=== PATIENT | male | born 1945 | race Caucasian/White ===

== ENCOUNTER 2018-03-04 12:45 | Observation (INO) | payer OTHER, MEDICARE ==
[2018-03-04] MEDS ORDERED: ALBUTEROL 2.5 MG/3 ML NEB SOL IH PRN (13:35)
[2018-03-04] MEDS: IPRATROPIUM BROM 0.5MG/2.5ML IH SCH ×2 (14:00→20:00)
[2018-03-04] MEDS ORDERED: ONDANSETRON 4 MG/2 ML VIAL IV PRN (14:00)
[2018-03-04] MEDS ORDERED: ACETAMINOPHEN 325 MG TABLET PO PRN (14:00)
[2018-03-04] MEDS ORDERED: DIPHENHYDRAMINE 25 MG TAB/CAP PO PRN (14:00)
[2018-03-04] MEDS ORDERED: NACHLORIDE 0.45% 1,000 ML IV SCH (14:00)
[2018-03-04] MEDS ORDERED: POLYETHYL GLY 3350 17 GM/DOSE PO PRN (14:00)
[2018-03-04] MEDS: LEVALBUTEROL 1.25 MG/3 ML NEB IH SCH ×2 (14:00→20:00)
[2018-03-04] MEDS ORDERED: LOPERAMIDE HCL 2 MG CAPSULE PO PRN (14:00)
[2018-03-04] MEDS ORDERED: ONDANSETRON 4 MG (ODT) TAB PO PRN (14:00)
[2018-03-04] MEDS ORDERED: NA CHLORIDE 0.9% 250 ML IV SCH (14:00)
[2018-03-04 15:28] LABS: Albumin 2.9 g/dL (3.2-5.5); Bilirubin Direct 0.2 mg/dL (0-0.2); Bilirubin Total 0.4 mg/dL (0.3-1.2); Potassium 4.4 mEq/L (3.6-5.0); Protein, Total 6.2 g/dL (6.0-8.3)
[2018-03-04 15:37] LABS: Absolute Lymphocytes (CBC) 0.6 K/uL (0.7-4.9); Absolute Monocytes 0.5 K/uL (0.1-1.3); Absolute Neutrophil 6.5 K/uL (1.8-8.0); Basophils % 0.1 % (0-1.3); Hematocrit 23.2 % (39.6-49.0); Lymphocytes % 7.8 % (15.3-44.8); MCH 31.5 pg (27.0-35.0); MCV 94.2 fL (80-100); MPV 7.6 fL (7.6-11.3); Monocytes % 6.2 % (3.3-12.3); RBC Red Blood Cell Count 2.46 M/uL (4.33-5.43)
[2018-03-04 16:46] LABS: Protime INR 1.03
[2018-03-04] MEDS ORDERED: NA CHLORIDE 0.9% 250 ML ONE (17:05)
[2018-03-04 21:04] VITALS: BMI 30.3
[2018-03-04 22:20] LABS: Anisocytosis 2+; Blood Morphology Comment NOTED (NOT SEEN); Hypochromasia 2+; Platelet Estimate ADEQ; Polychromasia 1+; Urine White Blood Cell Casts OK
--- NOTE | 2018-03-04 23:01 | EKG ---
Test Date: 2018-03-04 Test Time: 14:36:01 Pararescue Craftsman: SHADI MEASUREMENT RESULTS: Intervals: Rate: 68 MA: 164 QRSD: 96 QT: 418 QTc: 444 [place]: P: 67 MA: 164 QRS: -2 T: 17 INTERPRETIVE STATEMENTS: Normal sinus rhythm with sinus arrhythmia Normal ECG Compared to ECG 09/28/2012 13:26:16 No significant changes Electronically Signed On 03-04-18 23:00:50 CDT by Eric Velazquez
[2018-03-05] MEDS: LEVALBUTEROL 1.25 MG/3 ML NEB IH SCH (01:27)
[2018-03-05] MEDS: IPRATROPIUM BROM 0.5MG/2.5ML IH SCH (01:27)
[2018-03-05 01:54] VITALS: O2SAT 97
[2018-03-05 02:22] LABS: Hematocrit 30.7 % (39.6-49.0)
[2018-03-05 02:35] VITALS: BP 131/65; TEMP 97.5
--- NOTE | 2018-04-04 13:38 | P.SSS ---
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 HE WAS TOLD BY [facility] TO COME TO MY OFFICE FOR BLOOD TRANSFUSION. HE WANTED TO GO HOME ON THE SAME DAY SO AFTER TWO UNITS OF PACKED RBCS HE WENT HOME AT NIGHT. HE HAS CHEMO GIVEN BY [facility]. Allergies No Known Allergies Allergy (Verified 03/04/18 13:44) Home Medications: Dexamethasone 4 mg PO BEDTIME 03/04/18 Methylphenidate HCl 5 mg PO BID 03/04/18 Metoclopramide HCl 5 mg PO TID 03/04/18 Ondansetron HCl 8 mg PO PRN PRN 03/04/18 Oxycodone HCl [Oxyir (Oxycodone HCl Imr)*] 5 mg PO PRN PRN 03/04/18 Pantoprazole Sodium 40 mg PO BID 03/04/18 Tamsulosin [Flomax*] 1 tab PO DAILY 03/04/18 - Past Medical/Surgical History Has patient received pneumonia vaccine in the past: No Diabetic: No -: stomach cancer -: diverticulitis that ruptured -: stomach surgery -: colonscopy bag -: knee sx - Social History Smoking Status: Never smoker Alcohol use: No CD- Drugs: No Caffeine use: Yes Place of Residence: Home Review of Systems 10-point ROS is otherwise unremarkable Physical Examination - Vital Signs Temperature: 97.5 F Blood Pressure: 131/65 Pulse: 57 Respirations: 18 Pulse Ox (%): 97 - Physical Exam General: Alert, In no apparent distress HEENT: Atraumatic, PERRLA, Mucous membr. moist/pink, EOMI, Sclerae nonicteric Neck: Supple, 2+ carotid pulse no bruit, No LAD, Without JVD or thyroid abnormality Respiratory: Clear to auscultation bilaterally, Normal air movement Cardiovascular: Regular rate/rhythm, Normal S1 S2 Gastrointestinal: Normal bowel sounds, No tenderness Musculoskeletal: No tenderness Integumentary: No rashes Neurological: Normal gait, Normal speech, Normal strength at 5/5 x4 extr, Normal tone, Normal affect Lymphatics: No axilla or inguinal lymphadenopathy - Diagnosis (Problem(s)) (1) Anemia associated with chemotherapy Status: Acute Plan: DID WELL WITH BL TR. WANTED TO GO HOME QUICK. WENT HOME AT 4 AM. (2) Stomach cancer Status: Acute Plan: MD DELGADO TO CONT THERAPY. - Disposition Disposition: ROUTINE DISCHARGE Condition: GOOD
== END 2018-03-05 03:00 | disposition home or self-care (01) ==
LOC: 2ND 12:58
PROVIDERS: ADMIT Internal Medicine; ATTEND Internal Medicine
PROC: 30233N1 Transfusion of Nonautologous Red Blood Cells into Peripheral Vein, Percutaneous Approach (ICD-10-PCS; principal; 2018-03-04)
DX: D64.9 Anemia, unspecified (principal); C16.9 Malignant neoplasm of stomach, unspecified
CPT/HCPCS: 36415 ×2; 36430; 80048; 80076; 85014; 85018; 85025; 85610; 85730; 86850; 86900; 86901; 93005; P9016 ×2

== ENCOUNTER 2019-01-07 09:34 | Inpatient (IN) | payer OTHER, MEDICARE ==
[2019-01-07] MEDS ORDERED: NA CHLORIDE 0.9% 1,000 ML ONE ×2 (10:27→12:42)
[2019-01-07 10:31] LABS: Absolute Lymphocytes (CBC) 0.6 K/uL (0.7-4.9); Absolute Monocytes 0.7 K/uL (0.1-1.3); Absolute Neutrophil 9.8 K/uL (1.8-8.0); Hematocrit 42.8 % (39.6-49.0); Lymphocytes % 5.4 % (15.3-44.8); MPV 7.2 fL (7.6-11.3); Monocytes % 6.6 % (3.3-12.3); RBC Red Blood Cell Count 4.29 M/uL (4.33-5.43)
[2019-01-07 10:52] LABS: Bilirubin Direct 0.3 mg/dL (0-0.2); Bilirubin Total 0.8 mg/dL (0.2-1.0); Potassium 4.5 mmol/L (3.5-5.1); Protein, Total 6.9 g/dL (6.4-8.2)
[2019-01-07 11:02] LABS: Blood Morphology Comment NOT SEEN (NOT SEEN); Platelet Estimate ADEQ
--- NOTE | 2019-01-07 11:15 | EKG ---
Test Date: 2019-01-07 Test Time: 09:43:12 Ticket Collector Or Usher: SHADI MEASUREMENT RESULTS: Intervals: Rate: 85 WA: 148 QRSD: 90 QT: 390 QTc: 464 [place]: P: 55 WA: 148 QRS: -15 T: 26 INTERPRETIVE STATEMENTS: Normal sinus rhythm Normal ECG Compared to ECG 03/04/2018 14:36:01 Sinus arrhythmia no longer present Electronically Signed On 01-07-19 11:10:51 CDT by Eric Velazquez
--- NOTE | 2019-01-07 11:40 | RAD REPORT ---
EXAM DESCRIPTION: CT - Stone Protocol - 01/07/2019 11:28 am CLINICAL HISTORY: Flank pain. ABD PAIN COMPARISON: CT ABD PELVIS W CONTRAST dated 09/28/2012 TECHNIQUE: Axial images were obtained without oral or IV contrast. Lack of contrast limits solid org an and vascular assessment. The [id number] spans the entirety of the system partially obscuring uppermost abdomen and lung bases. Coronal reformatted images were obtained and reviewed. All CT scans are performed using dose optimization technique as appropriate and may include automated exposure control or mA/KV adjustment according to patient size. FINDINGS: A small left pleural effusion is present. Cholecystectomy. Multiple calcifications are seen in the liver parenchyma compatible with granulomata . No aggressive liver lesion or biliary dilatation full assessment of the liver is limited by noncont rast technique.The spleen is unremarkable. The pancreas and adrenal glands are normal. No pathologic lymphadenopathy in the abdomen or pelvis. No urinary tract stones or obstructive uropathy. Multiple dilated small bowel loops are present in the abdomen likely indicating a distal mechanical s mall-bowel obstruction. Significant stool is retained in the colon. Normal appendix noted.Mild ascite s is present. No pneumoperitoneum. Prominent degenerative changes at the lumbosacral junction. IMPRESSION: Moderate mechanical small-bowel obstruction is present, likely involving the distal smal l bowel loops. Mild ascites. Moderate fecal retention in the colon.
--- NOTE | 2019-01-07 11:54 | RAD REPORT ---
EXAM DESCRIPTION: RAD - Chest Single View - 01/07/2019 11:42 am CLINICAL HISTORY: MALAISE Chest pain. COMPARISON: CHEST SINGLE VIEW dated 03/06/2008; CHEST PA AND LAT 2 VIEW dated 06/23/2003; Stone Protoc ol dated 01/07/2019 FINDINGS: Portable technique limits examination quality. Small left pleural effusion is noted. The lungs are grossly clear. The heart is normal in size. Right port catheter has tip in the SVC.
[2019-01-07] MEDS ORDERED: FENTANYL CITR 100 MCG/2 ML ONE (16:26)
--- NOTE | 2019-01-07 16:31 | EDPHYS ---
Physician Documentation [facility] Name: Alex Arana Age: 73 yrs Sex: Male : 1945 Arrival Date: 01/07/2019 Time: 09:41 Bed 6 Private MD: ED Physician Myke Johnston HPI: 01/07 16:05 This 73 yrs old Male presents to ER via EMS with complaints of FAILURE TO gs THRIVE, Epigastric Pain. 16:05 The patient presents with abdominal pain in the epigastric area. Onset: The gs symptoms/episode began/occurred yesterday. The symptoms do not radiate. Associated signs and symptoms: Pertinent positives: vomiting. The symptoms are described as achy, crampy. Modifying factors: The symptoms are alleviated by nothing, the symptoms are aggravated by nothing. Severity of pain: At its worst the pain was moderate in the emergency department the pain has improved mildly. The patient has experienced similar episodes in the past, a few times. The patient has been recently seen by a physician: yesterday. Historical: - Allergies: 09:47 No Known Allergies; bp - Home Meds: 09:47 finasteride 5 mg oral tab 1 tab once daily [Active]; tramadol 50 mg Oral tab 1 tab bp every 6 hours [Active]; metoclopramide HCl 10 mg Oral tab 1 tab before meals [Active]; zinc sulfate 220 mg Oral tab 220 mg daily [Active]; pantoprazole 40 mg oral TbEC 1 tab once daily [Active]; prochlorperazine maleate 10 mg Oral tab 1 tab every 8 hours [Active]; - PMHx: 09:47 Cancer; ESOPHAGEAL; bp - Immunization history:: Adult Immunizations. - Social history:: Smoking status: Patient/guardian denies using tobacco. - Ebola Screening: : Patient negative for fever greater than or equal to 101.5 degrees Fahrenheit, and additional compatible Ebola Virus Disease symptoms Patient denies exposure to infectious person Patient denies travel to an Ebola-affected area in the 21 days before illness onset No symptoms or risks identified at this time. ROS: 16:05 All other systems are negative. gs Exam: 16:07 Head/Face: Normocephalic, atraumatic. Eyes: Pupils equal round and reactive to light, gs extra-ocular motions intact. Lids and lashes normal. Conjunctiva and sclera are non-icteric and not injected. Cornea within normal limits. Periorbital areas with no swelling, redness, or edema. ENT: Nares patent. No nasal discharge, no septal abnormalities noted. Tympanic membranes are normal and external auditory canals are clear. Oropharynx with no redness, swelling, or masses, exudates, or evidence of obstruction, uvula midline. Mucous membranes moist. Neck: Trachea midline, no thyromegaly or masses palpated, and no cervical lymphadenopathy. Supple, full range of motion without nuchal rigidity, or vertebral point tenderness. No Meningismus. Chest/axilla: Normal chest wall appearance and motion. Nontender with no deformity. No lesions are appreciated. Cardiovascular: Regular rate and rhythm with a normal S1 and S2. No gallops, murmurs, or rubs. Normal PMI, no JVD. No pulse deficits. Respiratory: Lungs have equal breath sounds bilaterally, clear to auscultation and percussion. No rales, rhonchi or wheezes noted. No increased work of breathing, no retractions or nasal flaring. Back: No spinal tenderness. No costovertebral tenderness. Full range of motion. Skin: Warm, dry with normal turgor. Normal color with no rashes, no lesions, and no evidence of cellulitis. MS/ Extremity: Pulses equal, no cyanosis. Neurovascular intact. Full, normal range of motion. Neuro: Awake and alert, GCS 15, oriented to person, place, time, and situation. Cranial nerves II-XII grossly intact. Motor strength 5/5 in all extremities. Sensory grossly intact. Cerebellar exam normal. Normal gait. 16:07 Constitutional: The patient appears alert, awake. 16:07 Abdomen/GI: Palpation: moderate abdominal tenderness, in all quadrants, rebound tenderness, is not appreciated. Vital Signs: 09:47 BP 123 / 82; Pulse 90; Resp 16; Temp 97.4; Pulse Ox 96% ; Weight 74.84 kg; Height 5 ft. bp 11 in. (180.34 cm); 11:39 BP 111 / 92; Pulse 84; Resp 16; Pulse Ox 98% ; bp 12:17 BP 135 / 93; Pulse 80; Resp 14; Pulse Ox 99% ; bp 13:58 BP 140 / 100; Pulse 79; Resp 16; Pulse Ox 97% ; bp 15:22 BP 140 / 106; Pulse 79; Resp 14; Pulse Ox 98% on R/A; bp 16:43 BP 148 / 100; Pulse 79; Resp 14; Pulse Ox 96% ; bp 17:55 BP 108 / 68; Pulse 79; Resp 16; Pulse Ox 95% ; bp 09:47 Body Mass Index 23.01 (74.84 kg, 180.34 cm) bp MDM: 10:04 Patient medically screened. 16:11 Differential diagnosis: bowel obstruction, diverticulitis, non-specific abd pain. Data gs reviewed: vital signs, nurses notes. Counseling: I had a detailed discussion with the patient and/or guardian regarding: the historical points, exam findings, and any diagnostic results supporting the discharge/admit diagnosis, lab results, radiology results, the need for further work-up and treatment in the hospital. Response to treatment: the patient's symptoms have mildly improved after treatment. 16:30 ED course: PT WANTS TO HOLD OFF ON NG TUBE. 01/07 10:06 Order name: Basic Metabolic Panel; Complete Time: 11:15 01/07 10:06 Order name: CBC with Diff; Complete Time: 11:15 01/07 10:06 Order name: Hepatic Function; Complete Time: 11:15 01/07 10:06 Order name: Lipase; Complete Time: 11:15 01/07 10:34 Order name: Manual Differential; Complete Time: 11:15 EDMI 01/07 16:40 Order name: Basic Metabolic Panel EDMI 01/07 11:16 Order name: XRAY CXR (1 view); Complete Time: 11:57 01/07 16:40 Order name: Basic Metabolic Panel EDMI 01/07 16:40 Order name: CBC with Automated Diff EDMS 01/07 16:40 Order name: CBC with Automated Diff EDMS 01/07 16:40 Order name: Lipase EDMS 01/07 16:40 Order name: Lipase EDMS 01/07 16:40 Order name: Liver (Hepatic) Function EDMS 01/07 16:40 Order name: Liver (Hepatic) Function EDMI 01/07 10:06 Order name: IV Saline Lock; Complete Time: 10:09 01/07 10:06 Order name: Labs collected and sent; Complete Time: 10:52 01/07 10:06 Order name: EKG; Complete Time: 10:07 01/07 10:06 Order name: EKG - Nurse/Tech; Complete Time: 10:09 01/07 11:16 Order name: CT Stone Protocol; Complete Time: 11:57 01/07 16:40 Order name: NPO EDMS Administered Medications: 10:15 Drug: NS 0.9% 1000 ml Route: IV; Rate: 1 bolus; Site: left antecubital; bp 12:34 Follow up: IV Status: Completed infusion; IV Intake: 1000ml bp 12:20 Drug: NS 0.9% 1000 ml Route: IV; Rate: 150 ml/hr; Site: left antecubital; bp 17:56 Follow up: IV Status: Infusion continued upon admission bp 16:15 Drug: fentaNYL (PF) 50 mcg Route: IVP; Site: left antecubital; bp 17:55 Follow up: Response: Pain is decreased bp Disposition: 01/07/19 16:31 Hospitalization ordered by Ifeanyi Nayak for Inpatient Admission. Preliminary diagnosis is Other intestinal obstruction. - Bed requested for Telemetry/MedSurg (Inpatient). - Status is Inpatient Admission. hj - Condition is Stable. - Problem is new. - Symptoms have improved. UTI on Admission? No Signatures: Dispatcher [employer] EDMI Herrera Mondragon RN RN Emily Kaur RN RN df Starr, Gregory, MD MD gs Peltier, Brian, RN RN Pratima Ramsay Corrections: (The following items were deleted from the chart) 17:25 16:31 Hospitalization Ordered by Ifeanyi Nayak MD for Inpatient Admission. Preliminary df diagnosis is Other intestinal obstruction. Bed requested for Telemetry/MedSurg (Inpatient). Status is Inpatient Admission. Condition is Stable. Problem is new. Symptoms have improved. UTI on Admission? No. gs 17:25 17:25 01/07/2019 16:31 Hospitalization Ordered by Ifeanyi Nayak MD for Inpatient eb Admission. Preliminary diagnosis is Other intestinal obstruction. Bed requested for Telemetry/MedSurg (Inpatient). Status is Inpatient Admission. Condition is Stable. Problem is new. Symptoms have improved. UTI on Admission? No. df 18:09 17:25 01/07/2019 16:31 Hospitalization Ordered by Ifeanyi Nayak MD for Inpatient hj Admission. Preliminary diagnosis is Other intestinal obstruction. Bed requested for Telemetry/MedSurg (Inpatient). Status is Inpatient Admission. Condition is Stable. Problem is new. Symptoms have improved. UTI on Admission? No. eb
--- NOTE | 2019-01-07 16:31 | ER ---
Nurse's Notes [facility] Name: Alex Arana Age: 73 yrs Sex: Male : 1945 Arrival Date: 01/07/2019 Time: 09:41 Bed 6 Private MD: Diagnosis: Other intestinal obstruction Presentation: 01/07 09:42 Presenting complaint: EMS states: EPIGASTRIC PAIN AND DIAPHORESIS ON SCENE. Transition bp of care: patient was not received from another setting of care. Onset of symptoms was January 07, 2019. Risk Assessment: Do you want to hurt yourself or someone else? Patient reports no desire to harm self or others. Initial Sepsis Screen: Does the patient meet any 2 criteria? No. Patient's initial sepsis screen is negative. Does the patient have a suspected source of infection? No. Patient's initial sepsis screen is negative. Care prior to arrival: IV initiated. 20 GA, in the left antecubital area, Glucose check: 202 PT ON NEW CHEMO REGIMEN, TREATMENT Y/D. 09:42 Method Of Arrival: EMS: [facility] bp 09:42 Acuity: KENN 3 bp Triage Assessment: 09:47 General: Appears distressed, comfortable, slender, Behavior is calm, cooperative, bp appropriate for age. Pain: Complains of pain in epigastric area. EENT: No deficits noted. Neuro: Level of Consciousness is awake, alert, obeys commands, Oriented to person, place, time, situation, Appropriate for age. Cardiovascular: No deficits noted. Respiratory: Airway is patent Respiratory effort is even, unlabored, Respiratory pattern is regular, symmetrical. GI: Abdomen is non-distended. : No signs and/or symptoms were reported regarding the genitourinary system. Derm: No deficits noted. Musculoskeletal: Circulation, motion, and sensation intact. Range of motion: intact in all extremities. Historical: - Allergies: 09:47 No Known Allergies; bp - Home Meds: :47 finasteride 5 mg oral tab 1 tab once daily [Active]; tramadol 50 mg Oral tab 1 tab bp every 6 hours [Active]; metoclopramide HCl 10 mg Oral tab 1 tab before meals [Active]; zinc sulfate 220 mg Oral tab 220 mg daily [Active]; pantoprazole 40 mg oral TbEC 1 tab once daily [Active]; prochlorperazine maleate 10 mg Oral tab 1 tab every 8 hours [Active]; - PMHx: 09:47 Cancer; ESOPHAGEAL; bp - Immunization history:: Adult Immunizations. - Social history:: Smoking status: Patient/guardian denies using tobacco. - Ebola Screening: : Patient negative for fever greater than or equal to 101.5 degrees Fahrenheit, and additional compatible Ebola Virus Disease symptoms Patient denies exposure to infectious person Patient denies travel to an Ebola-affected area in the 21 days before illness onset No symptoms or risks identified at this time. Screenin:52 Abuse screen: Denies threats or abuse. Denies injuries from another. Nutritional bp screening: Has had N/V for 3 or more days. Tuberculosis screening: No symptoms or risk factors identified. Fall Risk None identified. Assessment: 09:52 General: SEE TRIAGE NOTE. bp 11:40 Reassessment: PT RETURNED FROM CT, ALL CURRENT ORDERS COMPLETED. bp 12:18 Reassessment: ALL CURRENT ORDERS COMPLETED, AWAITING PROVIDER RE-EVAL FOR DISPO. bp 13:59 Reassessment: TRANSFER PENDING, VS STABLE ON MONITOR. bp 15:37 Reassessment: NGT PLACEMENT ON HOLD PENDING MD C/S WITH FAMILY. bp 16:42 Reassessment: PER MD, NGT PLACEMENT ON HOLD. TRANSFER CANCELLED, ADMIT IN PROCESS. bp Vital Signs: 09:47 BP 123 / 82; Pulse 90; Resp 16; Temp 97.4; Pulse Ox 96% ; Weight 74.84 kg; Height 5 ft. bp 11 in. (180.34 cm); 11:39 BP 111 / 92; Pulse 84; Resp 16; Pulse Ox 98% ; bp 12:17 BP 135 / 93; Pulse 80; Resp 14; Pulse Ox 99% ; bp 13:58 BP 140 / 100; Pulse 79; Resp 16; Pulse Ox 97% ; bp 15:22 BP 140 / 106; Pulse 79; Resp 14; Pulse Ox 98% on R/A; bp 16:43 BP 148 / 100; Pulse 79; Resp 14; Pulse Ox 96% ; bp 17:55 BP 108 / 68; Pulse 79; Resp 16; Pulse Ox 95% ; bp 09:47 Body Mass Index 23.01 (74.84 kg, 180.34 cm) bp ED Course: 09:41 Patient arrived in ED. bp 09:43 Myke Johnston MD is Attending Physician. gs 09:44 Triage completed. bp 09:47 Arm band placed on. bp 09:50 EKG done, by nursing techn. reviewed by Myke Johnston MD. at1 09:52 Maintain EMS IV. Dressing intact. Good blood return noted. Site clean \T\ dry. Gauge \T\ bp site: 20 GAUGE LEFT AC. 09:52 Patient has correct armband on for positive identification. Placed in gown. Bed in low bp position. Call light in reach. Side rails up X2. Adult w/ patient. 09:53 David Shields, RN is Primary Nurse. bp 11:28 CT Stone Protocol In Process Unspecified. EDMS 11:40 X-ray completed. Portable x-ray completed in exam room. jr1 11:43 XRAY CXR (1 view) In Process Unspecified. EDMS 13:48 initiated a transfer with Shanel at the [facility] transfer center/ currently they eb are on diversion but she will still attempt the transfer. she will call back with the system configuration specialist doctor. 14:39 connected the doctor system configuration specialist for MD Hanks with Dr. Johnston for patient transfer eb consultation. 16:30 Ifeanyi Nayak MD is Hospitalizing Provider. gs 17:29 No provider procedures requiring assistance completed. Patient admitted, IV remains in bp place. Administered Medications: 10:15 Drug: NS 0.9% 1000 ml Route: IV; Rate: 1 bolus; Site: left antecubital; bp 12:34 Follow up: IV Status: Completed infusion; IV Intake: 1000ml bp 12:20 Drug: NS 0.9% 1000 ml Route: IV; Rate: 150 ml/hr; Site: left antecubital; bp 17:56 Follow up: IV Status: Infusion continued upon admission bp 16:15 Drug: fentaNYL (PF) 50 mcg Route: IVP; Site: left antecubital; bp 17:55 Follow up: Response: Pain is decreased bp Intake: 12:34 IV: 1000ml; Total: 1000ml. bp Outcome: 16:31 Decision to Hospitalize by Provider. gs 17:54 Admitted to Med/surg accompanied by tech, family with patient, via stretcher, room 205, bp with chart, Report called to GREGORIA MCCLELLAND 17:54 Condition: stable 17:54 Instructed on the need for admit. 18:09 Patient left the ED. hj Signatures: Dispatcher [employer] EDMS Jenelle Marcum [email or web address] Michaela Butts, field organizer EKG Tat1 Herrera Mondragon, STAS RN Myke Zambrano MD MD gs Peltier, Brian, RN RN bp Botello, Elizabeth eb
[2019-01-07] MEDS ORDERED: MORPHINE 4 MG/ML SYR IV PRN (16:38)
[2019-01-07] MEDS ORDERED: ACETAMINOPHEN 500 MG TAB PO PRN (16:38)
[2019-01-07] MEDS: D5 0.45 NS 1,000 ML IV SCH (18:27)
[2019-01-07 18:45] VITALS: BMI 23.0
[2019-01-07] MEDS ORDERED: SODIUM CHLORIDE 0.9% 10ML INJ IV PRN (21:25)
--- NOTE | 2019-01-07 21:35 | P.HP ---
Certification for Inpatient Patient admitted to: Inpatient With expected LOS: >2 Midnights Practitioner: I am a practitioner with admitting privileges, knowledge of patient current condition, hospital course, and medical plan of care. Services: Services provided to patient in accordance with Admission requirements found in Title 42 Section 412.3 of the Code of Federal Regulations Patient History Date of Service: 01/07/19 Reason for admission: ABDOMEN PAIN, NAUSEA AND VOMITING FOR A FEW DAYS. 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 HE HAS BEEN FIGHTING FOR [facility]. PER HIS SON THERE IS LOCALLY AGGRESSIVE CANCER AT LOWER END OF ESOPHAGUS AND IT IS GROWING. HE IS ADMITTED HERE [place] DOSE NOT HAVE BEDS. MR. LING HAS HAD VOMITING OFF AND ON BUT FOR LAST TWO DAYS IT IS MORE FREQUENT. Allergies No Known Allergies Allergy (Verified 03/04/18 13:44) - Past Medical/Surgical History Diabetic: No -: stomach cancer -: diverticulitis that ruptured -: stomach surgery -: colonscopy bag -: knee sx - Social History Alcohol use: No CD- Drugs: No Caffeine use: Yes Review of Systems 10-point ROS is otherwise unremarkable General: Weakness Gastrointestinal: Nausea, Vomiting Physical Examination - Vital Signs Temperature: 97.1 F Blood Pressure: 124/78 Pulse: 90 Respirations: 16 Pulse Ox (%): 96 - Physical Exam General: Alert, Acute distress, Mild distress, Moderate distress HEENT: Atraumatic, PERRLA, Mucous membr. moist/pink, EOMI, Sclerae nonicteric Neck: Supple, 2+ carotid pulse no bruit, No LAD, Without JVD or thyroid abnormality Respiratory: Clear to auscultation bilaterally, Normal air movement Cardiovascular: Regular rate/rhythm, Normal S1 S2 Gastrointestinal: Normal bowel sounds, No tenderness Musculoskeletal: No tenderness Integumentary: No rashes Neurological: Normal gait, Normal speech, Normal strength at 5/5 x4 extr, Normal tone, Normal affect Lymphatics: No axilla or inguinal lymphadenopathy - Studies Laboratory Data (last 24 hrs) 01/07/19 10:20: WBC 11.1 H, Hgb 14.0, Hct 42.8, Plt Count 199 01/07/19 10:20: Sodium 142, Potassium 4.5, BUN 33 H, Creatinine 1.56 H, Glucose 179 H, Total Bilirubin 0.8, AST 43 H, ALT 60, Alkaline Phosphatase 233 H, Lipase 42 L Assessment and Plan - Problems (Diagnosis) (1) Bowel obstruction Current Visit: Yes Status: Acute Plan: CONSULT DR. BRAVO. NGT CAN'T BE INSERTED FAMILY STATED THERE IS LOCALLY ADVANCED STOMACH CANCER IN THE PATH. HE IS AT RISK OF ASPIRATION. I ADVISED TO KEEP HEAD END ELEVATED. IV FLUIDS IV PPN. IV PROTONIX. 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 PROGNOSIS IS POOR. CANCER IS ADVANCED. THEY ARE STILL GOING TO [facility]. WE ARE WAITING FOR A BED THERE. - Advance Directives Does patient have a Living Will: No Does patient have a Durable POA for Healthcare: No
[2019-01-08] MEDS: METRONIDAZOLE 500mg IVPB 500 MG/100 ML BAG IV SCH ×2 (00:05→09:38)
[2019-01-08] MEDS ORDERED: CEFOXITIN 1 GM in NA CHLORIDE 0.9% 100 ML IVPB SCH (01:00)
[2019-01-08] MEDS ORDERED: CEFOXITIN/SWI 1gm 1 GM/10 ML SYR ONE (01:26)
[2019-01-08] MEDS ORDERED: NA CHLORIDE 0.9% 0 ML ONE (01:27)
[2019-01-08] MEDS: CEFOXITIN/SWI 1gm 1 GM/10 ML SYR IVP SCH ×2 (01:34→09:00)
[2019-01-08] MEDS: ONDANSETRON 4 MG/2 ML VIAL IV PRN ×2 (01:54→10:15)
[2019-01-08] MEDS: D5 0.45 NS 1,000 ML IV SCH ×2 (03:25→09:00)
[2019-01-08 07:01] LABS: Absolute Lymphocytes (CBC) 0.6 K/uL (0.7-4.9); Absolute Monocytes 0.4 K/uL (0.1-1.3); Absolute Neutrophil 6.8 K/uL (1.8-8.0); Basophils % 0.4 % (0-1.3); Eosinophils % 0.1 % (0-4.4); Hematocrit 33.2 % (39.6-49.0); Lymphocytes % 8.1 % (15.3-44.8); MPV 7.9 fL (7.6-11.3); Monocytes % 4.7 % (3.3-12.3); RBC Red Blood Cell Count 3.33 M/uL (4.33-5.43)
[2019-01-08 07:18] LABS: Albumin 2.7 g/dL (3.4-5.0); Bilirubin Direct 0.3 mg/dL (0-0.2); Bilirubin Total 0.8 mg/dL (0.2-1.0); Potassium 5.4 mmol/L (3.5-5.1); Protein, Total 5.9 g/dL (6.4-8.2)
--- NOTE | 2019-01-08 08:29 | RAD REPORT ---
EXAM DESCRIPTION: RAD - Abdomen W Erect - 01/08/2019 8:10 am CLINICAL HISTORY: Abdominal pain COMPARISON: January 07, 2019 cat scan FINDINGS: Moderate dilatation of small bowel persists. Colon is decompressed. Free air is not seen beneath the diaphragm IMPRESSION: No change in a mechanical small bowel obstruction
[2019-01-08] MEDS ORDERED: PANTOPRAZOLE 40 MG INJ IVP SCH (09:00)
--- NOTE | 2019-01-08 09:47 | P.PN ---
Subjective Date of Service: 01/08/19 Chief Complaint: ABDOMEN PAIN, NAUSEA AND VOMITING FOR A FEW DAYS. Subjective: No new changes HE STILL IS THE SAME. HE HAS NO BM OR GAS PASSAGE FROM BELOW. HEAVING BUT NO VOMITING. Review of Systems 10-point ROS is otherwise unremarkable General: Weakness, Malaise Gastrointestinal: Nausea, Distention (MILD) Physical Examination - Vital Signs Temperature: 97.2 F Blood Pressure: 110/60 Pulse: 81 Respirations: 16 Pulse Ox (%): 94 - Physical Exam General: Alert, Mild distress HEENT: Atraumatic, PERRLA, EOMI Neck: Supple, JVD not distended Respiratory: Clear to auscultation bilaterally, Normal air movement Cardiovascular: Regular rate/rhythm, Normal S1 S2 Gastrointestinal: Hyperactive, Distended (MILD) Musculoskeletal: No tenderness Integumentary: No rashes Neurological: Normal speech, Normal tone, Normal affect Lymphatics: No axilla or inguinal lymphadenopathy - Studies Laboratory Data (last 24 hrs) 01/07/19 10:20: WBC 11.1 H, Hgb 14.0, Hct 42.8, Plt Count 199 01/07/19 10:20: Sodium 142, Potassium 4.5, BUN 33 H, Creatinine 1.56 H, Glucose 179 H, Total Bilirubin 0.8, AST 43 H, ALT 60, Alkaline Phosphatase 233 H, Lipase 42 L Medications List Reviewed: Yes Assessment And Plan - Current Problems (Diagnosis) (1) Bowel obstruction Current Visit: Yes Status: Acute Plan: CONSULT DR. BRAVO. NGT CAN'T BE INSERTED FAMILY STATED THERE IS LOCALLY ADVANCED STOMACH CANCER IN THE PATH. HE IS AT RISK OF ASPIRATION. I ADVISED TO KEEP HEAD END ELEVATED. IV FLUIDS IV PPN. IV PROTONIX. WE ARE WAITING FOR .D.SANDY TRANSFER. NGT CAN'T BE INSERTED HE HAS ALMOST TOTAL BLOCKAGE OF LOWER ESOPHAGUS. HE HAS REFUSED G TUBE BEFORE OFFERED BY DR. MELO. HE MAY GET IT WHEN TRANSFERRED TO [facility]. HE IS STABLE BUT HAS TERMINAL DIAGNOSIS. HOSPICE MAY BE SUITABLE BUT AGAIN HIS MAIN DOCTORS NEED TO TALK TO HIM ABOUT IT. HE HAS DUAL ACUTE PROBLEMS NOW. ESOPHAGEAL OBSTRUCTION FROM CANCER AND BOWEL OBSTRUCTION. TODAY X RAY SHOWS NO IMPROVEMENT. PHARMACY IS WORKING ON PPN NOW. 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 PROGNOSIS IS POOR. CANCER IS ADVANCED. [facility] ARE STILL GOING TO [facility] WE ARE WAITING FOR A BED THERE.
[2019-01-08] MEDS ORDERED: D5 0.45 NS 1,000 ML IV SCH (10:00)
[2019-01-08] MEDS ORDERED: AA 4.25%/D10W/ELECTROLYTES 2,000 ML, Lipids 20% 250 ML with MULTIVITAMINS INJ 10 ML IV SCH ×6 (11:00→17:00)
[2019-01-08 11:57] VITALS: O2SAT 94
[2019-01-08 16:40] VITALS: BP 124/67; TEMP 97.5
[2019-01-08] MEDS ORDERED: ENOXAPARIN 40 MG/0.4 ML SQ SCH (17:00)
--- NOTE | 2019-01-08 18:31 | CON ---
Date of Consultation: 01/07/2019 Reason For Consultation: Possible small bowel obstruction. History Of Present Illness: The patient is a 73-year-old gentleman with known history of esophageal and stomach cancer who presented to Dr. Nayak yesterday with abdominal pain, nausea, and vomiting for a few days. He was supposed to be getting a PEG tube as he cannot tolerate oral diet anymore. He w as supposed to go to [facility] but they have no beds and therefore he was admitted here for further evaluation and workup. States that his last bowel movement was yesterday. He is passing some gas. Today on no nausea or vomiting. Currently on no sore throat, runny nose, cough, headaches, or dizzi ness. No chest pain. No blood in his stool. No dysuria or hematuria. Review of Systems: Otherwise unremarkable. Past Medical History: Esophageal stomach cancer. Past Surgical History: Exploratory laparotomy for perforated diverticulitis with colostomy and rever andrew. Knee surgery. Allergies: NO ALLERGIES. Social History: Does not smoke. Does not drink. Physical Examination: Vital signs: Stable. He is afebrile. He is awake, alert, and oriented x3. Head and Neck: Cranial 2 through 12 are grossly within normal limits. Neck: No neck masses. No JVD. Throat clear. Chest: Clear. Neck is supple. Chest are clear. Heart: S1 and S2. Abdomen: slightly distended. Minimal tenderness. No rebound, rigidity, or guarding. Extremities: Adequately perfused. Nontender. Neuro: Nonfocal. Diagnostic Data: White count on admission was 11.1 with a slight left shift. Today's white count is 7.8, and the left shift is slightly better. Electrolytes reviewed. Potassium is a little bit high at 5.4, BUN is elevated. CT of the abdomen and pelvis done yesterday shows moderate mechanical small bowel obstruction, likely involving distal small bowel loops. Moderate fecal retention in the colon . Abdominal x-ray does not show significant change today. Assessment: A 73-year-old gentleman with advanced esophageal stomach cancer for recommendation with up partial bowel obstruction. Recommendations: We will continue the patient on n.p.o. IV fluids, antibiotics he is on the list to be transferred to [facility] as soon as the bed is available. I think he would benefit from a PEG a nd likely to be used to decompress his bowel. I do not believe it is a complete obstruction. Clinic ally at this time, as he is passing gas and had a bowel movement yesterday , therefore, I think the c onstipation may be contributing to his dilated small bowel and back any medically manage once a PEG i n place. We will follow this patient while in the hospital. The plan of care discussed /MODL Voice ID: [id number] Report ID: [id number]
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
== END 2019-01-08 16:45 | disposition short-term general hospital (02) | DRG 389 ==
LOC: ER 09:34 → ERHOLD 16:36 → 2ND 17:56
PROVIDERS: ADMIT Internal Medicine; ATTEND Internal Medicine
DX: K56.609 Unspecified intestinal obstruction, unspecified as to partial versus complete obstruction (principal); C16.9 Malignant neoplasm of stomach, unspecified; C78.7 Secondary malignant neoplasm of liver and intrahepatic bile duct; K22.2 Esophageal obstruction
CPT/HCPCS: 36415; 71045; 74019; 74176; 76377; 80048; 80076; 82962; 83690; 85025; 93005; 96361; 96374; 99285; C9113; J0694; J2405; J3010; J7030